=== PATIENT | female | born 1965 | race African-American/Black ===

== ENCOUNTER 2017-08-08 13:56 | Inpatient (IN) ==
[2017-08-08] MEDS ORDERED: ONDANSETRON 4 MG/2 ML VIAL IV STA (14:09)
[2017-08-08] MEDS ORDERED: PANTOPRAZOLE 40 MG VIAL IV STA (14:09)
[2017-08-08] MEDS ORDERED: SODIUM CHLORIDE 0.9% 1,000 ML IV STA ×2 (14:09→17:55)
[2017-08-08] MEDS ORDERED: ONDANSETRON 4 MG/2 ML VIAL ONE (14:56)
[2017-08-08] MEDS ORDERED: PANTOPRAZOLE 40 MG VIAL IV ONE (14:56)
[2017-08-08 15:27] LABS: Basophils # 0.1 10*3/uL (0.0-0.2); Basophils % 0.6 % (0.0-0.8); Eosinophils % 0.2 % (0.00-10.9); Hematocrit 24.6 VOL% (35.7-47.0); Hemoglobin 8.2 GM/DL (12.0-16.0); Immature Granulocytes % 0.6 %; Immature Granulocytes Absolute 0.07 #; Lymphocytes # 1.5 10*3/uL (1.4-4.0); Lymphocytes % 11.9 % (21.3-54.2); Mean Corpuscular HGB Conc 33.3 GM/DL (32-36); Mean Corpuscular Hemoglobin 30 PG (27-34); Mean Corpuscular Volume 88.8 FL (87-102); Mean Platelet Volume 12.7 FL (9.6-12.0); Monocytes # 0.8 10*3/uL (0.11-0.8); Monocytes % 6.8 % (1.7-12.7); Neutrophils # 9.8 10*3/uL (1.4-7.4); Neutrophils % 79.9 % (38.7-73.9); Platelet Count 179 T/CUMM (130-400); Red Blood Count 2.77 MC/CUMM (3.8-5.5); Red Cell Distribution Width 19.1 % (9.3-17.3); White Blood Count 12.2 T/CUMM (4-12)
[2017-08-08 16:03] LABS: Albumin 3.2 G/DL (3.4-5.0); Bilirubin,Total 1.6 MG/DL (0.2-1.0); Calcium 7.5 MG/DL (8.5-10.1); Osmolality,Calculated 290.3 MOS/KG (273-304); Total Protein 6.4 G/DL (6.4-8.3)
[2017-08-08 16:56] LABS: Partial Thromboplastin Time 68.1 SECS (0-40)
[2017-08-08 16:58] LABS: PT Patient Result > 200.0 SECS
[2017-08-08] MEDS ORDERED: PHYTONADIONE 5 MG TABLET PO ONE (18:31)
[2017-08-08] MEDS ORDERED: GLUCAGON 1 MG VIAL IM PRN (18:42)
[2017-08-08] MEDS ORDERED: DEXTROSE 50% 25 GM/50 ML VIAL IV PRN (18:42)
[2017-08-08 21:41] LABS: PT Patient Result > 200.0 SECS
[2017-08-08] MEDS: FUROSEMIDE 20 MG/2 ML VIAL IV SCH (21:57)
[2017-08-08] MEDS: FLUTICASONE/SALMETEROL 250-50 DISKUS 14 DOSE INH SCH (21:57)
[2017-08-08] MEDS: BUMETANIDE 1 MG TABLET PO SCH (21:58)
[2017-08-08] MEDS: INSULIN REGULAR 100 UNIT/ML SUBCUT SCH (21:58)
[2017-08-09 07:47] LABS: Albumin 2.7 G/DL (3.4-5.0); Bilirubin,Total 1.5 MG/DL (0.2-1.0); Calcium 6.7 MG/DL (8.5-10.1); Osmolality,Calculated 289.3 MOS/KG (273-304); Potassium 3.5 MMOL/L (3.5-5.1); Total Protein 5.3 G/DL (6.4-8.3)
[2017-08-09] MEDS ORDERED: amLODIPine 2.5 MG TABLET PO SCH (09:00)
[2017-08-09] MEDS: FUROSEMIDE 20 MG/2 ML VIAL IV SCH ×2 (09:03→16:43)
[2017-08-09] MEDS: BUMETANIDE 1 MG TABLET PO SCH ×2 (09:03→21:16)
[2017-08-09] MEDS: MAGNESIUM CHLORIDE 64 MG TABLET PO SCH (09:03)
[2017-08-09] MEDS: FLUTICASONE/SALMETEROL 250-50 DISKUS 14 DOSE INH SCH ×2 (09:04→21:37)
[2017-08-09] MEDS: INSULIN REGULAR 100 UNIT/ML SUBCUT SCH ×4 (09:04→21:21)
[2017-08-09 10:47] LABS: Basophils % 0.3 % (0.0-0.8); Eosinophils % 0.1 % (0.00-10.9); Hematocrit 18.2 VOL% (35.7-47.0); Immature Granulocytes % 0.7 %; Immature Granulocytes Absolute 0.09 #; Lymphocytes # 1.3 10*3/uL (1.4-4.0); Lymphocytes % 9.5 % (21.3-54.2); Mean Corpuscular Hemoglobin 30 PG (27-34); Mean Corpuscular Volume 91.9 FL (87-102); Mean Platelet Volume 12.1 FL (9.6-12.0); Monocytes # 0.9 10*3/uL (0.11-0.8); Monocytes % 6.4 % (1.7-12.7); Neutrophils # 11.5 10*3/uL (1.4-7.4); Platelet Count 167 T/CUMM (130-400); Red Blood Count 1.98 MC/CUMM (3.8-5.5); Red Cell Distribution Width 19.1 % (9.3-17.3); White Blood Count 13.8 T/CUMM (4-12)
[2017-08-09 11:06] LABS: PT Patient Result 177.9 SECS; Partial Thromboplastin Time 64.1 SECS (0-40)
[2017-08-09 11:08] LABS: INR 18.8
[2017-08-09] MEDS ORDERED: SODIUM CHLORIDE 0.9% 1,000 ML IV PRN (11:27)
[2017-08-09] MEDS ORDERED: PHYTONADIONE 5 MG TABLET PO STA (11:45)
[2017-08-09 12:52] LABS: Apearance,Urine CLEAR (Clear); Bacteria,Urine Occasional /HPF (Few); Bilirubin,Urine Negative (Negative); Blood, Urine Moderate mg/dL (Negative); Glucose,Urine (UA) Negative (Negative); Hyaline Casts,Urine 5 /LPF (0-3); Ketones,Urine Negative (Negative); Mucus,Urine Occasional /LPF (Occasional); Nitrite,Urine Positive (Negative); Protein,Urine Negative; RBC,Urine 6 /HPF (0-4); Squamous Epithelial Cell,Urine Occasional /HPF (0-10); Urine Color Yellow (Yellow); Urine Specific Gravity 1.008 (1.001-1.035); Urine Urobilinogen < 2.0 EU/DL (0.2-1.0); WBC,Urine 9 /HPF (0-6)
[2017-08-09] MEDS ORDERED: FUROSEMIDE 20 MG/2 ML VIAL IV PRN (14:56)
[2017-08-09] MEDS ORDERED: MAGNESIUM SULF RIDER 4 GM in PREMIX 1 EACH IV PRN (14:59)
[2017-08-09] MEDS ORDERED: MAGNESIUM SULF RIDER 2 GM in PREMIX 1 EACH IV PRN (14:59)
[2017-08-09] MEDS: BISACODYL 5 MG TABLET PO SCH ×2 (16:43→22:29)
[2017-08-09] MEDS ORDERED: POLYETHYLENE GLYCOL POWDER 255 GM BOTTLE PO ONE (17:00)
[2017-08-09 18:57] LABS: Hematocrit 21.8 VOL% (35.7-47.0)
[2017-08-09 18:59] LABS: Hemoglobin 7.4 GM/DL (12.0-16.0)
[2017-08-09 19:18] LABS: INR 4.2; PT Patient Result 42.5 SECS; Partial Thromboplastin Time 43.1 SECS (0-40)
[2017-08-09] MEDS ORDERED: MAGNESIUM CITRATE 300 ML BOTTLE PO ONE (21:00)
[2017-08-09] MEDS: PANTOPRAZOLE 40 MG VIAL IV SCH (21:20)
[2017-08-10 03:25] LABS: Hematocrit 21.5 VOL% (35.7-47.0); Hemoglobin 7.2 GM/DL (12.0-16.0)
[2017-08-10 03:37] LABS: Partial Thromboplastin Time 35.6 SECS (0-40)
[2017-08-10 03:42] LABS: INR 2.7
[2017-08-10 03:46] LABS: PT Patient Result 27.5 SECS
[2017-08-10] MEDS: BISACODYL 5 MG TABLET PO SCH (06:36)
[2017-08-10] MEDS ORDERED: PHYTONADIONE 10 MG/1 ML AMP SUBCUT STA (07:35)
[2017-08-10] MEDS: INSULIN REGULAR 100 UNIT/ML SUBCUT SCH ×4 (08:12→21:46)
[2017-08-10] MEDS: PANTOPRAZOLE 40 MG VIAL IV SCH (08:22)
[2017-08-10] MEDS: FUROSEMIDE 20 MG/2 ML VIAL IV SCH ×2 (08:22→15:42)
[2017-08-10] MEDS ORDERED: cefTRIAXone 1,000 MG in SYRINGE 1 EACH IV SCH (09:00)
[2017-08-10] MEDS ORDERED: diphenhydrAMINE CAP 50 MG CAPSULE PO PRN (10:33)
[2017-08-10] MEDS ORDERED: FUROSEMIDE 20 MG/2 ML VIAL IV ONE (10:34)
[2017-08-10] MEDS: BUMETANIDE 1 MG TABLET PO SCH ×2 (10:49→21:45)
[2017-08-10] MEDS: FLUTICASONE/SALMETEROL 250-50 DISKUS 14 DOSE INH SCH ×2 (10:49→21:46)
[2017-08-10] MEDS: ACETAMINOPHEN 325 MG TABLET PO PRN (10:49)
[2017-08-10] MEDS: MAGNESIUM CHLORIDE 64 MG TABLET PO SCH (10:49)
[2017-08-10 12:39] LABS: INR 2.2
[2017-08-10 12:41] LABS: PT Patient Result 22.3 SECS
[2017-08-10] MEDS ORDERED: PROPOFOL 200 MG/20 ML VIAL IV ONE (13:34)
[2017-08-10 21:32] LABS: Hematocrit 25.4 VOL% (35.7-47.0); Hemoglobin 8.6 GM/DL (12.0-16.0)
[2017-08-10 21:41] LABS: INR 2.4
[2017-08-10 21:43] LABS: PT Patient Result 24.2 SECS
[2017-08-11 04:40] LABS: Basophils # 0.1 10*3/uL (0.0-0.2); Basophils % 0.3 % (0.0-0.8); Hematocrit 24.6 VOL% (35.7-47.0); Hemoglobin 8.5 GM/DL (12.0-16.0); Immature Granulocytes % 1.2 %; Immature Granulocytes Absolute 0.28 #; Lymphocytes # 1.3 10*3/uL (1.4-4.0); Lymphocytes % 5.4 % (21.3-54.2); Mean Corpuscular HGB Conc 34.6 GM/DL (32-36); Mean Corpuscular Hemoglobin 30 PG (27-34); Mean Corpuscular Volume 86.9 FL (87-102); Mean Platelet Volume 12.2 FL (9.6-12.0); Monocytes # 1.7 10*3/uL (0.11-0.8); Monocytes % 7.1 % (1.7-12.7); Neutrophils # 20.9 10*3/uL (1.4-7.4); Platelet Count 139 T/CUMM (130-400); Red Blood Count 2.83 MC/CUMM (3.8-5.5); Red Cell Distribution Width 18.1 % (9.3-17.3); White Blood Count 24.3 T/CUMM (4-12)
[2017-08-11 05:12] LABS: Calcium 7.5 MG/DL (8.5-10.1); Magnesium 1.7 MG/DL (1.8-2.4); Osmolality,Calculated 281.7 MOS/KG (273-304); Potassium 3.1 MMOL/L (3.5-5.1); Risk Ratio 3.37; VLDL CHOLESTEROL 17.4 MG/DL
[2017-08-11 06:10] LABS: Anisocytosis 1+; Band Neutrophils 1 % (0-10); Lymphocytes 6 % (20-55); Metamyelocytes 1 %; Segmented Neutrophils 90 % (50-85); Total Cells Counted 100
[2017-08-11 06:11] LABS: Hypochromasia 1+; Ovalocytes 1+; Platelet Estimate Normal
[2017-08-11] MEDS: POTASSIUM CHLORIDE RIDER 10 MEQ in PREMIX 1 EACH IV PRN ×4 (06:15→15:44)
[2017-08-11] MEDS: MAGNESIUM CHLORIDE 64 MG TABLET PO SCH (09:54)
[2017-08-11] MEDS: BUMETANIDE 1 MG TABLET PO SCH ×2 (09:54→21:14)
[2017-08-11] MEDS: POTASSIUM CHLORIDE 20 MEQ TABLET PO SCH (09:55)
[2017-08-11] MEDS: INSULIN REGULAR 100 UNIT/ML SUBCUT SCH ×4 (09:56→21:14)
[2017-08-11] MEDS: FLUTICASONE/SALMETEROL 250-50 DISKUS 14 DOSE INH SCH ×2 (09:58→21:14)
[2017-08-11] MEDS: FUROSEMIDE 20 MG/2 ML VIAL IV SCH ×2 (09:59→16:57)
[2017-08-11] MEDS: METOPROLOL SUCCINATE XL 25 MG TABLET PO SCH (15:00)
[2017-08-11] MEDS: PIPERACILLIN/TAZOBACTAM 3,375 MG in SODIUM CHLORIDE 0.9% 100 ML IV SCH ×2 (18:09→22:50)
[2017-08-12 03:22] LABS: Basophils # 0.1 10*3/uL (0.0-0.2); Basophils % 0.2 % (0.0-0.8); Eosinophils # 0.1 10*3/uL (0.0-0.87); Eosinophils % 0.2 % (0.00-10.9); Hematocrit 25.6 VOL% (35.7-47.0); Hemoglobin 8.8 GM/DL (12.0-16.0); Lymphocytes # 1.1 10*3/uL (1.4-4.0); Lymphocytes % 5.5 % (21.3-54.2); Mean Corpuscular HGB Conc 34.4 GM/DL (32-36); Mean Corpuscular Hemoglobin 30 PG (27-34); Mean Corpuscular Volume 87.7 FL (87-102); Mean Platelet Volume 12.3 FL (9.6-12.0); Monocytes # 1.5 10*3/uL (0.11-0.8); Monocytes % 7.5 % (1.7-12.7); NRBC # 0.08 10*3/uL; Neutrophils # 17.1 10*3/uL (1.4-7.4); Neutrophils % 85.6 % (38.7-73.9); Platelet Count 179 T/CUMM (130-400); Red Blood Count 2.92 MC/CUMM (3.8-5.5); Red Cell Distribution Width 18.3 % (9.3-17.3)
[2017-08-12 03:24] LABS: INR 1.7; PT Patient Result 17.9 SECS
[2017-08-12 03:45] LABS: Calcium 7.7 MG/DL (8.5-10.1); Magnesium 1.6 MG/DL (1.8-2.4); Osmolality,Calculated 277.1 MOS/KG (273-304); Potassium 3.9 MMOL/L (3.5-5.1)
[2017-08-12 04:15] LABS: Anisocytosis 1+; Band Neutrophils 2 % (0-10); Eosinophils 1 % (0-10); Lymphocytes 5 % (20-55); Ovalocytes Few; Platelet Estimate Normal; Polychromasia Slight; Segmented Neutrophils 88 % (50-85); Total Cells Counted 100
[2017-08-12] MEDS: PIPERACILLIN/TAZOBACTAM 3,375 MG in SODIUM CHLORIDE 0.9% 100 ML IV SCH ×3 (07:00→22:45)
[2017-08-12] MEDS: INSULIN REGULAR 100 UNIT/ML SUBCUT SCH ×4 (10:28→20:24)
[2017-08-12] MEDS: FUROSEMIDE 20 MG/2 ML VIAL IV SCH ×2 (10:29→15:30)
[2017-08-12] MEDS: BUMETANIDE 1 MG TABLET PO SCH ×2 (10:32→20:24)
[2017-08-12] MEDS: POTASSIUM CHLORIDE 20 MEQ TABLET PO SCH (10:32)
[2017-08-12] MEDS: MAGNESIUM CHLORIDE 64 MG TABLET PO SCH (10:33)
[2017-08-12] MEDS: METOPROLOL SUCCINATE XL 25 MG TABLET PO SCH (10:33)
[2017-08-12] MEDS: FLUTICASONE/SALMETEROL 250-50 DISKUS 14 DOSE INH SCH ×2 (10:34→20:25)
[2017-08-12] MEDS: ACETAMINOPHEN 325 MG TABLET PO PRN (13:27)
[2017-08-13 05:20] LABS: Basophils # 0.1 10*3/uL (0.0-0.2); Basophils % 0.4 % (0.0-0.8); Eosinophils # 0.1 10*3/uL (0.0-0.87); Eosinophils % 0.6 % (0.00-10.9); Hematocrit 27.3 VOL% (35.7-47.0); Hemoglobin 9.1 GM/DL (12.0-16.0); Immature Granulocytes % 0.7 %; Lymphocytes % 6.8 % (21.3-54.2); Mean Corpuscular HGB Conc 33.3 GM/DL (32-36); Mean Corpuscular Hemoglobin 29 PG (27-34); Mean Corpuscular Volume 88.1 FL (87-102); Mean Platelet Volume 11.9 FL (9.6-12.0); Monocytes # 1.1 10*3/uL (0.11-0.8); Monocytes % 8.1 % (1.7-12.7); NRBC # 0.04 10*3/uL; Neutrophils # 11.8 10*3/uL (1.4-7.4); Neutrophils % 83.4 % (38.7-73.9); Platelet Count 198 T/CUMM (130-400); Red Cell Distribution Width 18.5 % (9.3-17.3); White Blood Count 14.1 T/CUMM (4-12)
[2017-08-13 05:48] LABS: Calcium 8.1 MG/DL (8.5-10.1); Magnesium 1.9 MG/DL (1.8-2.4); Potassium 4.5 MMOL/L (3.5-5.1)
[2017-08-13] MEDS: PIPERACILLIN/TAZOBACTAM 3,375 MG in SODIUM CHLORIDE 0.9% 100 ML IV SCH ×2 (06:15→16:04)
[2017-08-13] MEDS: INSULIN REGULAR 100 UNIT/ML SUBCUT SCH ×4 (07:30→21:42)
[2017-08-13] MEDS: METOPROLOL SUCCINATE XL 25 MG TABLET PO SCH (09:30)
[2017-08-13] MEDS: BUMETANIDE 1 MG TABLET PO SCH ×2 (09:30→21:41)
[2017-08-13] MEDS: POTASSIUM CHLORIDE 20 MEQ TABLET PO SCH (09:31)
[2017-08-13] MEDS: FUROSEMIDE 20 MG/2 ML VIAL IV SCH ×2 (09:31→16:00)
[2017-08-13] MEDS: MAGNESIUM CHLORIDE 64 MG TABLET PO SCH (09:31)
[2017-08-13] MEDS: FLUTICASONE/SALMETEROL 250-50 DISKUS 14 DOSE INH SCH ×2 (09:39→21:41)
[2017-08-13] MEDS ORDERED: ONDANSETRON 4 MG/2 ML VIAL IV PRN (12:28)
[2017-08-13] MEDS: ACETAMINOPHEN 325 MG TABLET PO PRN (12:49)
[2017-08-13] MEDS: CARVEDILOL 6.25 MG TABLET PO SCH (21:41)
[2017-08-14] MEDS: PIPERACILLIN/TAZOBACTAM 3,375 MG in SODIUM CHLORIDE 0.9% 100 ML IV SCH ×4 (00:13→23:14)
[2017-08-14 06:22] LABS: Basophils % 0.3 % (0.0-0.8); Eosinophils # 0.1 10*3/uL (0.0-0.87); Eosinophils % 0.9 % (0.00-10.9); Hematocrit 27.5 VOL% (35.7-47.0); Hemoglobin 8.8 GM/DL (12.0-16.0); Immature Granulocytes % 0.7 %; Immature Granulocytes Absolute 0.07 #; Lymphocytes # 0.9 10*3/uL (1.4-4.0); Mean Corpuscular Hemoglobin 29 PG (27-34); Mean Corpuscular Volume 90.5 FL (87-102); Mean Platelet Volume 11.8 FL (9.6-12.0); Monocytes # 0.9 10*3/uL (0.11-0.8); Monocytes % 9.4 % (1.7-12.7); NRBC # 0.07 10*3/uL; Neutrophils % 79.7 % (38.7-73.9); Platelet Count 213 T/CUMM (130-400); Red Blood Count 3.04 MC/CUMM (3.8-5.5); Red Cell Distribution Width 18.6 % (9.3-17.3)
[2017-08-14 06:31] LABS: INR 1.4; PT Patient Result 15.1 SECS
[2017-08-14 06:49] LABS: Calcium 8.1 MG/DL (8.5-10.1); Magnesium 1.9 MG/DL (1.8-2.4); Potassium 5.1 MMOL/L (3.5-5.1)
[2017-08-14] MEDS: INSULIN REGULAR 100 UNIT/ML SUBCUT SCH ×4 (07:30→21:48)
[2017-08-14] MEDS: CARVEDILOL 6.25 MG TABLET PO SCH ×2 (08:27→21:48)
[2017-08-14] MEDS ORDERED: REGADENOSON 0.4 MG/5 ML SYRINGE IV ONE (09:30)
[2017-08-14] MEDS: MAGNESIUM CHLORIDE 64 MG TABLET PO SCH (10:43)
[2017-08-14] MEDS: FUROSEMIDE 20 MG/2 ML VIAL IV SCH ×2 (10:43→15:49)
[2017-08-14] MEDS: POTASSIUM CHLORIDE 20 MEQ TABLET PO SCH (10:44)
[2017-08-14] MEDS: BUMETANIDE 1 MG TABLET PO SCH ×2 (10:44→21:47)
[2017-08-14] MEDS: FLUTICASONE/SALMETEROL 250-50 DISKUS 14 DOSE INH SCH ×2 (10:44→21:47)
[2017-08-15] MEDS: PIPERACILLIN/TAZOBACTAM 3,375 MG in SODIUM CHLORIDE 0.9% 100 ML IV SCH ×2 (06:18→14:35)
[2017-08-15] MEDS: INSULIN REGULAR 100 UNIT/ML SUBCUT SCH ×4 (07:59→21:47)
[2017-08-15] MEDS: CARVEDILOL 6.25 MG TABLET PO SCH ×2 (08:52→21:47)
[2017-08-15] MEDS: BUMETANIDE 1 MG TABLET PO SCH ×2 (08:52→21:26)
[2017-08-15] MEDS: POTASSIUM CHLORIDE 20 MEQ TABLET PO SCH (08:52)
[2017-08-15] MEDS: FLUTICASONE/SALMETEROL 250-50 DISKUS 14 DOSE INH SCH ×2 (08:52→21:43)
[2017-08-15] MEDS: MAGNESIUM CHLORIDE 64 MG TABLET PO SCH (08:52)
[2017-08-15] MEDS: FUROSEMIDE 20 MG/2 ML VIAL IV SCH (10:09)
[2017-08-15] MEDS: FUROSEMIDE 40 MG/4 ML VIAL IV SCH ×2 (11:11→21:28)
[2017-08-15] MEDS: SILDENAFIL 20 MG TABLET PO SCH ×2 (14:35→21:26)
[2017-08-16] MEDS: PIPERACILLIN/TAZOBACTAM 3,375 MG in SODIUM CHLORIDE 0.9% 100 ML IV SCH ×3 (01:17→16:39)
[2017-08-16 05:45] LABS: Calcium 8.2 MG/DL (8.5-10.1); Magnesium 1.9 MG/DL (1.8-2.4); Potassium 4.7 MMOL/L (3.5-5.1)
[2017-08-16] MEDS: FUROSEMIDE 40 MG/4 ML VIAL IV SCH ×3 (06:10→20:53)
[2017-08-16] MEDS ORDERED: amLODIPine 5 MG TABLET PO SCH (09:00)
[2017-08-16] MEDS: INSULIN REGULAR 100 UNIT/ML SUBCUT SCH ×4 (09:38→20:50)
[2017-08-16] MEDS: MAGNESIUM CHLORIDE 64 MG TABLET PO SCH (09:39)
[2017-08-16] MEDS: CARVEDILOL 6.25 MG TABLET PO SCH ×2 (09:40→20:51)
[2017-08-16] MEDS: FLUTICASONE/SALMETEROL 250-50 DISKUS 14 DOSE INH SCH ×2 (09:40→20:50)
[2017-08-16] MEDS: SILDENAFIL 20 MG TABLET PO SCH ×3 (09:40→20:49)
[2017-08-16] MEDS: POTASSIUM CHLORIDE 20 MEQ TABLET PO SCH (09:40)
[2017-08-16] MEDS: BUMETANIDE 1 MG TABLET PO SCH ×2 (09:40→20:49)
[2017-08-17] MEDS: PIPERACILLIN/TAZOBACTAM 3,375 MG in SODIUM CHLORIDE 0.9% 100 ML IV SCH ×2 (00:34→10:36)
[2017-08-17] MEDS: FUROSEMIDE 40 MG/4 ML VIAL IV SCH ×2 (05:50→14:29)
[2017-08-17] MEDS ORDERED: amLODIPine 2.5 MG TABLET PO SCH (09:00)
[2017-08-17] MEDS: INSULIN REGULAR 100 UNIT/ML SUBCUT SCH ×2 (09:51→12:12)
[2017-08-17] MEDS: CARVEDILOL 6.25 MG TABLET PO SCH (10:22)
[2017-08-17] MEDS: BUMETANIDE 1 MG TABLET PO SCH (10:22)
[2017-08-17] MEDS: POTASSIUM CHLORIDE 20 MEQ TABLET PO SCH (10:23)
[2017-08-17] MEDS: MAGNESIUM CHLORIDE 64 MG TABLET PO SCH (10:24)
[2017-08-17] MEDS: SILDENAFIL 20 MG TABLET PO SCH (10:25)
[2017-08-17 12:01] VITALS: BP 89/55
[2017-08-17] MEDS: FLUTICASONE/SALMETEROL 250-50 DISKUS 14 DOSE INH SCH (12:24)
== END 2017-08-17 16:10 | disposition home or self-care (01) | DRG 813 ==
LOC: N.ED 13:56 → N.EDINP 18:24 → SUATTDRO 18:24 → N.5E 19:03 → N.CC 08-09 11:43 → N.3E 08-10 19:21
PROVIDERS: ADMIT Hospitalist; ATTEND Internal Medicine
PROC: COLONBX (2017-08-10 07:30)

== ENCOUNTER 2017-09-07 17:36 | Inpatient (IN) ==
[2017-09-07] MEDS ORDERED: VANCOMYCIN INJ 1,000 MG in SODIUM CHLORIDE 0.9% 250 ML IV STA (17:54)
[2017-09-07] MEDS ORDERED: VANCOMYCIN 1,000 MG VIAL ONE (18:51)
[2017-09-07 18:59] LABS: Basophils # 0.1 10*3/uL (0.0-0.2); Basophils % 0.4 % (0.0-0.8); Eosinophils # 0.1 10*3/uL (0.0-0.87); Eosinophils % 0.6 % (0.00-10.9); Hematocrit 33.8 VOL% (35.7-47.0); Hemoglobin 10.3 GM/DL (12.0-16.0); Immature Granulocytes % 0.5 %; Immature Granulocytes Absolute 0.07 #; Lymphocytes # 0.9 10*3/uL (1.4-4.0); Lymphocytes % 6.8 % (21.3-54.2); Mean Corpuscular HGB Conc 30.5 GM/DL (32-36); Mean Corpuscular Hemoglobin 27 PG (27-34); Mean Corpuscular Volume 87.8 FL (87-102); Mean Platelet Volume 11.5 FL (9.6-12.0); Monocytes # 0.9 10*3/uL (0.11-0.8); Monocytes % 6.5 % (1.7-12.7); Neutrophils # 11.6 10*3/uL (1.4-7.4); Neutrophils % 85.2 % (38.7-73.9); Platelet Count 258 T/CUMM (130-400); Red Blood Count 3.85 MC/CUMM (3.8-5.5); Red Cell Distribution Width 18.4 % (9.3-17.3); White Blood Count 13.6 T/CUMM (4-12)
[2017-09-07 19:10] LABS: INR 1.1
[2017-09-07 19:29] LABS: Albumin 3.2 G/DL (3.4-5.0); Calcium 8.3 MG/DL (8.5-10.1); Osmolality,Calculated 275.1 MOS/KG (273-304); Potassium 3.4 MMOL/L (3.5-5.1); Total Protein 7.3 G/DL (6.4-8.3)
[2017-09-07] MEDS ORDERED: ONDANSETRON 4 MG/2 ML VIAL IV PRN (20:38)
[2017-09-07] MEDS ORDERED: DEXTROSE 50% 25 GM/50 ML VIAL IV PRN (20:58)
[2017-09-07] MEDS ORDERED: GLUCAGON 1 MG VIAL IM PRN (20:58)
[2017-09-07] MEDS ORDERED: DOCUSATE SODIUM 100 MG CAPSULE PO PRN (21:05)
[2017-09-07] MEDS ORDERED: CEFTAROLINE 600 MG in SODIUM CHLORIDE 0.9% 100 ML IV SCH (21:30)
[2017-09-07] MEDS ORDERED: PNEUMOCOCCAL VACCINE (23 VALENT) 0.5 ML VIAL IM ONE (22:00)
[2017-09-07] MEDS ORDERED: INFLUENZA VIRUS VACCINE 0.5 ML SYRINGE IM ONE (22:00)
[2017-09-07] MEDS: INSULIN LISPRO 100 UNIT/ML SUBCUT SCH (22:17)
[2017-09-07] MEDS: FERROUS SULFATE 325 MG TABLET PO SCH (22:30)
[2017-09-07] MEDS: CARVEDILOL 6.25 MG TABLET PO SCH (22:30)
[2017-09-07] MEDS: CEFTAROLINE 600 MG in SODIUM CHLORIDE 0.9% 50 ML IV SCH (22:31)
[2017-09-08 03:28] LABS: Basophils % 0.3 % (0.0-0.8); Eosinophils # 0.1 10*3/uL (0.0-0.87); Eosinophils % 0.5 % (0.00-10.9); Hematocrit 30.6 VOL% (35.7-47.0); Hemoglobin 9.5 GM/DL (12.0-16.0); Immature Granulocytes % 0.3 %; Immature Granulocytes Absolute 0.04 #; Lymphocytes # 0.6 10*3/uL (1.4-4.0); Lymphocytes % 4.9 % (21.3-54.2); Mean Corpuscular Hemoglobin 27 PG (27-34); Mean Platelet Volume 11.7 FL (9.6-12.0); Monocytes # 0.7 10*3/uL (0.11-0.8); Monocytes % 5.4 % (1.7-12.7); Neutrophils # 10.7 10*3/uL (1.4-7.4); Neutrophils % 88.6 % (38.7-73.9); Platelet Count 214 T/CUMM (130-400); Red Blood Count 3.56 MC/CUMM (3.8-5.5); Red Cell Distribution Width 18.4 % (9.3-17.3); White Blood Count 12.1 T/CUMM (4-12)
[2017-09-08 04:08] LABS: Calcium 8.1 MG/DL (8.5-10.1); Osmolality,Calculated 278.8 MOS/KG (273-304); Potassium 3.3 MMOL/L (3.5-5.1); Thyroid Stimulating Hormone 2.62 uIU/ml (0.358-3.74)
[2017-09-08] MEDS ORDERED: POTASSIUM CHLORIDE 20 MEQ TABLET PO ONE (08:09)
[2017-09-08] MEDS ORDERED: MAGNESIUM SULF RIDER 2 GM in PREMIX 1 EACH IV ONE (08:10)
[2017-09-08] MEDS ORDERED: amLODIPine 2.5 MG TABLET PO SCH (09:00)
[2017-09-08] MEDS: INSULIN LISPRO 100 UNIT/ML SUBCUT SCH ×4 (10:10→20:41)
[2017-09-08] MEDS: MAGNESIUM CHLORIDE 64 MG TABLET PO SCH (10:12)
[2017-09-08] MEDS: metFORMIN 500 MG TABLET PO SCH ×2 (10:12→16:49)
[2017-09-08] MEDS: FERROUS SULFATE 325 MG TABLET PO SCH ×2 (10:12→20:44)
[2017-09-08] MEDS: FUROSEMIDE 40 MG/4 ML VIAL IV SCH ×2 (10:21→16:32)
[2017-09-08] MEDS: LOSARTAN 25 MG TABLET PO SCH (10:21)
[2017-09-08] MEDS: CARVEDILOL 6.25 MG TABLET PO SCH ×2 (10:33→20:41)
[2017-09-08] MEDS ORDERED: MAGNESIUM SULF RIDER 4 GM in PREMIX 1 EACH IV PRN (12:04)
[2017-09-08] MEDS ORDERED: MAGNESIUM SULF RIDER 2 GM in PREMIX 1 EACH IV PRN (12:04)
[2017-09-08] MEDS: CEFTAROLINE 600 MG in SODIUM CHLORIDE 0.9% 50 ML IV SCH ×2 (12:37→23:16)
[2017-09-08] MEDS: ACETAMINOPHEN 325 MG TABLET PO PRN ×2 (16:50→23:20)
[2017-09-09 04:50] LABS: Calcium 8.4 MG/DL (8.5-10.1); Magnesium 1.9 MG/DL (1.8-2.4); Osmolality,Calculated 276.1 MOS/KG (273-304); Potassium 3.9 MMOL/L (3.5-5.1)
[2017-09-09] MEDS: INSULIN LISPRO 100 UNIT/ML SUBCUT SCH ×4 (08:05→20:26)
[2017-09-09] MEDS: CARVEDILOL 6.25 MG TABLET PO SCH ×2 (09:52→20:24)
[2017-09-09] MEDS: MAGNESIUM CHLORIDE 64 MG TABLET PO SCH (09:52)
[2017-09-09] MEDS: LOSARTAN 25 MG TABLET PO SCH (09:52)
[2017-09-09] MEDS: metFORMIN 500 MG TABLET PO SCH ×2 (09:53→18:26)
[2017-09-09] MEDS: FUROSEMIDE 40 MG/4 ML VIAL IV SCH ×2 (09:53→18:27)
[2017-09-09] MEDS: FERROUS SULFATE 325 MG TABLET PO SCH ×2 (09:53→20:24)
[2017-09-09] MEDS ORDERED: metOLazone 5 MG TABLET PO SCH (11:00)
[2017-09-09] MEDS: CEFTAROLINE 600 MG in SODIUM CHLORIDE 0.9% 50 ML IV SCH ×2 (11:33→22:42)
[2017-09-09] MEDS: ACETAMINOPHEN 325 MG TABLET PO PRN ×2 (11:40→18:26)
[2017-09-09] MEDS: POTASSIUM CHLORIDE 20 MEQ TABLET PO SCH ×2 (18:26→20:24)
[2017-09-09] MEDS: ALBUMIN 25% 25 GM in PREMIX 1 EACH IV SCH ×2 (18:32→23:47)
[2017-09-09 22:12] LABS: Apearance,Urine Slightly Hazy (Clear); Bacteria,Urine Occasional /HPF (Few); Bilirubin,Urine Negative (Negative); Blood, Urine Negative (Negative); Glucose,Urine (UA) Negative (Negative); Hyaline Casts,Urine 79 /LPF (0-3); Ketones,Urine Negative (Negative); Mucus,Urine Occasional /LPF (Occasional); Nitrite,Urine Negative (Negative); Protein,Urine Negative; RBC,Urine 6 /HPF (0-4); Squamous Epithelial Cell,Urine Occasional /HPF (0-10); Urine Color Amber (Yellow); Urine Specific Gravity 1.014 (1.001-1.035); WBC,Urine 3 /HPF (0-6)
[2017-09-10 03:21] LABS: Basophils # 0.1 10*3/uL (0.0-0.2); Basophils % 0.5 % (0.0-0.8); Eosinophils # 0.1 10*3/uL (0.0-0.87); Eosinophils % 0.8 % (0.00-10.9); Hematocrit 32.3 VOL% (35.7-47.0); Hemoglobin 9.8 GM/DL (12.0-16.0); Immature Granulocytes % 0.7 %; Immature Granulocytes Absolute 0.08 #; Lymphocytes # 0.9 10*3/uL (1.4-4.0); Lymphocytes % 7.3 % (21.3-54.2); Mean Corpuscular HGB Conc 30.3 GM/DL (32-36); Mean Corpuscular Hemoglobin 26 PG (27-34); Mean Corpuscular Volume 86.4 FL (87-102); Mean Platelet Volume 11.2 FL (9.6-12.0); Monocytes # 0.9 10*3/uL (0.11-0.8); Monocytes % 7.3 % (1.7-12.7); Neutrophils # 10.2 10*3/uL (1.4-7.4); Neutrophils % 83.4 % (38.7-73.9); Platelet Count 228 T/CUMM (130-400); Red Blood Count 3.74 MC/CUMM (3.8-5.5); Red Cell Distribution Width 18.4 % (9.3-17.3); White Blood Count 12.3 T/CUMM (4-12)
[2017-09-10 03:51] LABS: Calcium 8.8 MG/DL (8.5-10.1); Magnesium 1.9 MG/DL (1.8-2.4); Osmolality,Calculated 275.2 MOS/KG (273-304); Potassium 4.3 MMOL/L (3.5-5.1)
[2017-09-10] MEDS: INSULIN LISPRO 100 UNIT/ML SUBCUT SCH ×4 (07:30→21:43)
[2017-09-10] MEDS: FUROSEMIDE 40 MG/4 ML VIAL IV SCH ×2 (10:28→19:11)
[2017-09-10] MEDS: ALBUMIN 25% 25 GM in PREMIX 1 EACH IV SCH ×2 (10:32→19:17)
[2017-09-10] MEDS: metFORMIN 500 MG TABLET PO SCH ×2 (10:34→19:13)
[2017-09-10] MEDS: FERROUS SULFATE 325 MG TABLET PO SCH ×2 (10:34→21:42)
[2017-09-10] MEDS: LOSARTAN 25 MG TABLET PO SCH (10:34)
[2017-09-10] MEDS: CARVEDILOL 6.25 MG TABLET PO SCH ×2 (10:34→21:42)
[2017-09-10] MEDS: metOLazone 5 MG TABLET PO SCH (10:35)
[2017-09-10] MEDS: MAGNESIUM CHLORIDE 64 MG TABLET PO SCH (10:35)
[2017-09-10] MEDS: POTASSIUM CHLORIDE 20 MEQ TABLET PO SCH ×2 (10:35→21:42)
[2017-09-10] MEDS: ACETAMINOPHEN 325 MG TABLET PO PRN (10:36)
[2017-09-10] MEDS: CEFTAROLINE 600 MG in SODIUM CHLORIDE 0.9% 50 ML IV SCH ×2 (15:31→23:23)
[2017-09-11] MEDS: ALBUMIN 25% 25 GM in PREMIX 1 EACH IV SCH ×4 (00:08→22:35)
[2017-09-11] MEDS ORDERED: SODIUM CHLORIDE 0.9% 250 ML IV ONE (04:47)
[2017-09-11] MEDS ORDERED: ALBUMIN 25% 25 GM in PREMIX 1 EACH IV ONE (05:35)
[2017-09-11] MEDS ORDERED: MIDODRINE 5 MG TABLET PO SCH (06:00)
[2017-09-11] MEDS: INSULIN LISPRO 100 UNIT/ML SUBCUT SCH ×4 (08:10→21:11)
[2017-09-11] MEDS: CARVEDILOL 6.25 MG TABLET PO SCH ×2 (09:45→21:12)
[2017-09-11] MEDS: LOSARTAN 25 MG TABLET PO SCH (09:45)
[2017-09-11] MEDS: FERROUS SULFATE 325 MG TABLET PO SCH ×2 (09:45→21:14)
[2017-09-11] MEDS: metOLazone 5 MG TABLET PO SCH (09:46)
[2017-09-11] MEDS: POTASSIUM CHLORIDE 20 MEQ TABLET PO SCH ×2 (09:46→21:14)
[2017-09-11] MEDS: MAGNESIUM CHLORIDE 64 MG TABLET PO SCH (09:46)
[2017-09-11] MEDS: FUROSEMIDE 40 MG/4 ML VIAL IV SCH ×2 (10:32→18:00)
[2017-09-11] MEDS: CEFTAROLINE 600 MG in SODIUM CHLORIDE 0.9% 100 ML IV SCH ×2 (12:31→21:30)
[2017-09-11] MEDS: BACITRACIN OINT 0.9 GM PACK TOP SCH (21:10)
[2017-09-12] MEDS: ACETAMINOPHEN 325 MG TABLET PO PRN (00:14)
[2017-09-12 07:26] LABS: Basophils % 0.2 % (0.0-0.8); Hematocrit 32.6 VOL% (35.7-47.0); Immature Granulocytes % 0.9 %; Immature Granulocytes Absolute 0.13 #; Lymphocytes # 0.8 10*3/uL (1.4-4.0); Lymphocytes % 5.7 % (21.3-54.2); Mean Corpuscular HGB Conc 30.7 GM/DL (32-36); Mean Corpuscular Hemoglobin 27 PG (27-34); Mean Corpuscular Volume 87.6 FL (87-102); Monocytes % 7.3 % (1.7-12.7); Neutrophils # 12.3 10*3/uL (1.4-7.4); Neutrophils % 85.9 % (38.7-73.9); Platelet Count 247 T/CUMM (130-400); Red Blood Count 3.72 MC/CUMM (3.8-5.5); Red Cell Distribution Width 18.6 % (9.3-17.3); White Blood Count 14.3 T/CUMM (4-12)
[2017-09-12 07:44] LABS: Calcium 9.2 MG/DL (8.5-10.1); Osmolality,Calculated 268.8 MOS/KG (273-304); Potassium 5.7 MMOL/L (3.5-5.1)
[2017-09-12] MEDS ORDERED: SODIUM POLYSTYRENE SULFATE 15 GM/60 ML BOTTLE PO ONE (10:35)
[2017-09-12] MEDS: CARVEDILOL 6.25 MG TABLET PO SCH ×3 (10:56→21:14)
[2017-09-12] MEDS: MAGNESIUM CHLORIDE 64 MG TABLET PO SCH (10:56)
[2017-09-12] MEDS: FERROUS SULFATE 325 MG TABLET PO SCH ×2 (10:56→21:19)
[2017-09-12] MEDS: INSULIN LISPRO 100 UNIT/ML SUBCUT SCH ×4 (10:56→21:54)
[2017-09-12] MEDS: ALBUMIN 25% 25 GM in PREMIX 1 EACH IV SCH (10:56)
[2017-09-12] MEDS: CEFTAROLINE 400 MG in SODIUM CHLORIDE 0.9% 100 ML IV SCH ×2 (10:57→21:20)
[2017-09-12] MEDS: FUROSEMIDE 40 MG/4 ML VIAL IV SCH (11:53)
[2017-09-12] MEDS: BACITRACIN OINT 0.9 GM PACK TOP SCH (11:54)
[2017-09-13 06:39] LABS: Calcium 9.4 MG/DL (8.5-10.1); Osmolality,Calculated 268.1 MOS/KG (273-304); Potassium 5.7 MMOL/L (3.5-5.1)
[2017-09-13] MEDS: INSULIN LISPRO 100 UNIT/ML SUBCUT SCH ×4 (07:42→21:50)
[2017-09-13] MEDS: CARVEDILOL 6.25 MG TABLET PO SCH (08:28)
[2017-09-13] MEDS: FERROUS SULFATE 325 MG TABLET PO SCH ×2 (08:28→21:49)
[2017-09-13] MEDS: MAGNESIUM CHLORIDE 64 MG TABLET PO SCH (08:29)
[2017-09-13] MEDS: CEFTAROLINE 400 MG in SODIUM CHLORIDE 0.9% 100 ML IV SCH ×2 (11:17→21:50)
[2017-09-13] MEDS ORDERED: SODIUM POLYSTYRENE SULFATE 15 GM/60 ML BOTTLE PO ONE (11:19)
[2017-09-13] MEDS ORDERED: SODIUM CHLORIDE 0.45% 1,000 ML IV SCH (11:30)
[2017-09-13] MEDS: ENOXAPARIN 30 MG/0.3 ML SYRINGE SUBCUT SCH (11:47)
[2017-09-13] MEDS: SODIUM CHLORIDE 1 GM TABLET PO SCH ×2 (11:48→21:49)
[2017-09-13] MEDS: BACITRACIN OINT 0.9 GM PACK TOP SCH (15:47)
[2017-09-14 05:46] LABS: Basophils % 0.1 % (0.0-0.8); Eosinophils % 0.1 % (0.00-10.9); Hematocrit 33.8 VOL% (35.7-47.0); Hemoglobin 10.8 GM/DL (12.0-16.0); Immature Granulocytes % 0.6 %; Lymphocytes # 0.7 10*3/uL (1.4-4.0); Mean Corpuscular Hemoglobin 27 PG (27-34); Mean Corpuscular Volume 84.9 FL (87-102); Monocytes # 1.2 10*3/uL (0.11-0.8); Monocytes % 7.3 % (1.7-12.7); Neutrophils # 14.4 10*3/uL (1.4-7.4); Neutrophils % 87.9 % (38.7-73.9); Platelet Count 276 T/CUMM (130-400); Red Blood Count 3.98 MC/CUMM (3.8-5.5); Red Cell Distribution Width 18.8 % (9.3-17.3); White Blood Count 16.4 T/CUMM (4-12)
[2017-09-14 06:07] LABS: Lymphocytes 6 % (20-55); Segmented Neutrophils 87 % (50-85); Total Cells Counted 100
[2017-09-14 06:08] LABS: Burr Cells Slight; Hypochromasia 1+; Ovalocytes Slight; Platelet Estimate Adequate
[2017-09-14 06:18] LABS: Calcium 8.9 MG/DL (8.5-10.1); Magnesium 2.1 MG/DL (1.8-2.4); Osmolality,Calculated 265.2 MOS/KG (273-304); Potassium 5.8 MMOL/L (3.5-5.1)
[2017-09-14 07:26] LABS: Apearance,Urine CLOUDY (Clear); Bacteria,Urine Few /HPF (Few); Bilirubin,Urine Negative (Negative); Blood, Urine Large mg/dL (Negative); Glucose,Urine (UA) Negative (Negative); Hyaline Casts,Urine 53 /LPF (0-3); Ketones,Urine Negative (Negative); Mucus,Urine Occasional /LPF (Occasional); Nitrite,Urine Negative (Negative); Protein,Urine 100 MG/DL; RBC,Urine 162 /HPF (0-4); Squamous Epithelial Cell,Urine Occasional /HPF (0-10); Urine Color Amber (Yellow); Urine Specific Gravity 1.018 (1.001-1.035); Urine Urobilinogen < 2.0 EU/DL (0.2-1.0); WBC,Urine 183 /HPF (0-6)
[2017-09-14] MEDS: INSULIN LISPRO 100 UNIT/ML SUBCUT SCH ×4 (07:31→20:37)
[2017-09-14] MEDS ORDERED: SODIUM POLYSTYRENE SULFATE 15 GM/60 ML BOTTLE PO ONE (09:12)
[2017-09-14] MEDS: BACITRACIN OINT 0.9 GM PACK TOP SCH (09:47)
[2017-09-14] MEDS: MAGNESIUM CHLORIDE 64 MG TABLET PO SCH (09:48)
[2017-09-14] MEDS: FLUCONAZOLE 100 MG TABLET PO SCH (09:48)
[2017-09-14] MEDS: SODIUM CHLORIDE 1 GM TABLET PO SCH ×2 (09:48→20:37)
[2017-09-14] MEDS: CEFTAROLINE 400 MG in SODIUM CHLORIDE 0.9% 100 ML IV SCH ×2 (09:48→22:42)
[2017-09-14] MEDS: FERROUS SULFATE 325 MG TABLET PO SCH ×2 (09:48→20:37)
[2017-09-14] MEDS: ENOXAPARIN 30 MG/0.3 ML SYRINGE SUBCUT SCH (11:21)
[2017-09-15 04:36] LABS: Basophils % 0.1 % (0.0-0.8); Eosinophils % 0.1 % (0.00-10.9); Hematocrit 33.1 VOL% (35.7-47.0); Hemoglobin 10.5 GM/DL (12.0-16.0); Immature Granulocytes % 0.5 %; Immature Granulocytes Absolute 0.09 #; Lymphocytes # 0.5 10*3/uL (1.4-4.0); Lymphocytes % 3.2 % (21.3-54.2); Mean Corpuscular HGB Conc 31.7 GM/DL (32-36); Mean Corpuscular Hemoglobin 27 PG (27-34); Mean Corpuscular Volume 84.9 FL (87-102); Mean Platelet Volume 10.6 FL (9.6-12.0); Neutrophils # 15.2 10*3/uL (1.4-7.4); Neutrophils % 90.1 % (38.7-73.9); Platelet Count 254 T/CUMM (130-400); Red Cell Distribution Width 18.8 % (9.3-17.3); White Blood Count 16.9 T/CUMM (4-12)
[2017-09-15 05:04] LABS: Calcium 8.7 MG/DL (8.5-10.1); Osmolality,Calculated 267.4 MOS/KG (273-304); Potassium 5.7 MMOL/L (3.5-5.1)
[2017-09-15 08:58] LABS: Hypochromasia 1+; Lymphocytes 2 % (20-55); Microcytosis 1+; Platelet Estimate Normal; Segmented Neutrophils 93 % (50-85); Total Cells Counted 100
[2017-09-15] MEDS: FLUCONAZOLE 100 MG TABLET PO SCH (10:05)
[2017-09-15] MEDS: MAGNESIUM CHLORIDE 64 MG TABLET PO SCH (10:06)
[2017-09-15] MEDS: FERROUS SULFATE 325 MG TABLET PO SCH ×2 (10:06→21:23)
[2017-09-15] MEDS: SODIUM CHLORIDE 1 GM TABLET PO SCH (10:06)
[2017-09-15] MEDS: CEFTAROLINE 400 MG in SODIUM CHLORIDE 0.9% 100 ML IV SCH (10:06)
[2017-09-15] MEDS: INSULIN LISPRO 100 UNIT/ML SUBCUT SCH ×4 (10:22→21:21)
[2017-09-15 10:55] LABS: Free T4 (Free Thyroxine) 0.92 NG/DL (0.76-1.46); T4 (Thyroxine) 4.7 UG/DL (4.7-13.3)
[2017-09-15] MEDS: BACITRACIN OINT 0.9 GM PACK TOP SCH (11:17)
[2017-09-15 11:21] LABS: ABG Base Excess -4.4 MMOL/L (-2.5-2.5); ABG HCO3 20.4 MMOL/L (20-26); ABG Oxygen Saturation 89.5 % (95-100); ABG PCO2 36.4 MM HG (35-48); ABG PH 7.366 (7.35-7.45); ABG PO2 58.3 MM HG (80-95); ABG TCO2 21.5 MMOL/L (23-27); Pt O2 Delivery Device Simple Mask
[2017-09-15] MEDS ORDERED: SODIUM POLYSTYRENE SULFATE 15 GM/60 ML BOTTLE PO ONE (14:25)
[2017-09-15] MEDS: ENOXAPARIN 30 MG/0.3 ML SYRINGE SUBCUT SCH (14:25)
[2017-09-16 05:34] LABS: Basophils % 0.1 % (0.0-0.8); Eosinophils % 0.1 % (0.00-10.9); Hematocrit 33.6 VOL% (35.7-47.0); Hemoglobin 10.5 GM/DL (12.0-16.0); Immature Granulocytes % 0.6 %; Lymphocytes # 0.5 10*3/uL (1.4-4.0); Lymphocytes % 3.2 % (21.3-54.2); Mean Corpuscular HGB Conc 31.3 GM/DL (32-36); Mean Corpuscular Hemoglobin 27 PG (27-34); Mean Corpuscular Volume 85.5 FL (87-102); Mean Platelet Volume 10.7 FL (9.6-12.0); Monocytes # 0.9 10*3/uL (0.11-0.8); Monocytes % 5.7 % (1.7-12.7); NRBC # 0.02 10*3/uL; Neutrophils # 14.5 10*3/uL (1.4-7.4); Neutrophils % 90.3 % (38.7-73.9); Platelet Count 226 T/CUMM (130-400); Red Blood Count 3.93 MC/CUMM (3.8-5.5); Red Cell Distribution Width 18.7 % (9.3-17.3)
[2017-09-16 06:11] LABS: Calcium 8.8 MG/DL (8.5-10.1); Osmolality,Calculated 268.2 MOS/KG (273-304)
[2017-09-16 07:17] LABS: Band Neutrophils 4 % (0-10); Eosinophils 1 % (0-10); Lymphocytes 6 % (20-55); Metamyelocytes 1 %; Segmented Neutrophils 84 % (50-85); Total Cells Counted 100
[2017-09-16 07:18] LABS: Anisocytosis 2+; Poikilocytosis 2+; Polychromasia 2+
[2017-09-16] MEDS: INSULIN LISPRO 100 UNIT/ML SUBCUT SCH ×4 (07:52→22:40)
[2017-09-16] MEDS: FLUCONAZOLE 100 MG TABLET PO SCH (10:00)
[2017-09-16] MEDS: FERROUS SULFATE 325 MG TABLET PO SCH ×2 (10:00→22:16)
[2017-09-16] MEDS: MAGNESIUM CHLORIDE 64 MG TABLET PO SCH (10:00)
[2017-09-16] MEDS: BACITRACIN OINT 0.9 GM PACK TOP SCH (11:25)
[2017-09-16] MEDS: ENOXAPARIN 30 MG/0.3 ML SYRINGE SUBCUT SCH (11:39)
[2017-09-17 02:26] LABS: Basophils % 0.1 % (0.0-0.8); Eosinophils % 0.1 % (0.00-10.9); Hematocrit 34.1 VOL% (35.7-47.0); Hemoglobin 10.3 GM/DL (12.0-16.0); Immature Granulocytes % 0.5 %; Immature Granulocytes Absolute 0.08 #; Lymphocytes # 0.5 10*3/uL (1.4-4.0); Lymphocytes % 3.3 % (21.3-54.2); Mean Corpuscular HGB Conc 30.2 GM/DL (32-36); Mean Corpuscular Hemoglobin 26 PG (27-34); Mean Platelet Volume 10.3 FL (9.6-12.0); Monocytes # 0.9 10*3/uL (0.11-0.8); Monocytes % 5.6 % (1.7-12.7); NRBC # 0.03 10*3/uL; Neutrophils # 14.4 10*3/uL (1.4-7.4); Neutrophils % 90.4 % (38.7-73.9); Platelet Count 213 T/CUMM (130-400); Red Blood Count 3.92 MC/CUMM (3.8-5.5); Red Cell Distribution Width 18.9 % (9.3-17.3); White Blood Count 15.9 T/CUMM (4-12)
[2017-09-17 03:06] LABS: Albumin 3.6 G/DL (3.4-5.0); Bilirubin,Total 1.3 MG/DL (0.2-1.0); Calcium 8.8 MG/DL (8.5-10.1); Osmolality,Calculated 270.2 MOS/KG (273-304); Potassium 5.2 MMOL/L (3.5-5.1); Total Protein 6.9 G/DL (6.4-8.3)
[2017-09-17 03:18] LABS: Lymphocytes 4 % (20-55); Segmented Neutrophils 91 % (50-85)
[2017-09-17 03:19] LABS: Burr Cells 1+; Elliptocytes 1+
[2017-09-17 03:26] LABS: Anisocytosis 2+; Ovalocytes 2+; Schistocytes Few
[2017-09-17 03:27] LABS: Platelet Estimate Normal; Polychromasia Few; Total Cells Counted 100
[2017-09-17 03:28] LABS: Poikilocytosis Few
[2017-09-17] MEDS: FERROUS SULFATE 325 MG TABLET PO SCH ×2 (08:49→21:26)
[2017-09-17] MEDS: MAGNESIUM CHLORIDE 64 MG TABLET PO SCH (08:49)
[2017-09-17] MEDS: FLUCONAZOLE 100 MG TABLET PO SCH (08:49)
[2017-09-17] MEDS: INSULIN LISPRO 100 UNIT/ML SUBCUT SCH ×4 (08:51→21:27)
[2017-09-17] MEDS: BACITRACIN OINT 0.9 GM PACK TOP SCH (08:51)
[2017-09-17] MEDS: ENOXAPARIN 30 MG/0.3 ML SYRINGE SUBCUT SCH (12:02)
[2017-09-17] MEDS ORDERED: FUROSEMIDE 40 MG/4 ML VIAL IV ONE (14:14)
[2017-09-18] MEDS: INSULIN LISPRO 100 UNIT/ML SUBCUT SCH ×4 (07:19→21:28)
[2017-09-18] MEDS: FERROUS SULFATE 325 MG TABLET PO SCH ×2 (08:56→22:00)
[2017-09-18] MEDS: FLUCONAZOLE 100 MG TABLET PO SCH (08:56)
[2017-09-18] MEDS: MAGNESIUM CHLORIDE 64 MG TABLET PO SCH (08:56)
[2017-09-18 10:30] LABS: Basophils % 0.2 % (0.0-0.8); Hematocrit 35.8 VOL% (35.7-47.0); Hemoglobin 11.6 GM/DL (12.0-16.0); Immature Granulocytes % 0.8 %; Immature Granulocytes Absolute 0.16 #; Lymphocytes # 0.7 10*3/uL (1.4-4.0); Lymphocytes % 3.7 % (21.3-54.2); Mean Corpuscular HGB Conc 32.4 GM/DL (32-36); Mean Corpuscular Hemoglobin 28 PG (27-34); Mean Corpuscular Volume 85.6 FL (87-102); Mean Platelet Volume 11.3 FL (9.6-12.0); Monocytes # 1.1 10*3/uL (0.11-0.8); Monocytes % 5.4 % (1.7-12.7); NRBC # 0.04 10*3/uL; Neutrophils # 17.7 10*3/uL (1.4-7.4); Neutrophils % 89.9 % (38.7-73.9); Platelet Count 221 T/CUMM (130-400); Red Blood Count 4.18 MC/CUMM (3.8-5.5); Red Cell Distribution Width 19.4 % (9.3-17.3); White Blood Count 19.7 T/CUMM (4-12)
[2017-09-18] MEDS: BACITRACIN OINT 0.9 GM PACK TOP SCH (10:40)
[2017-09-18 10:57] LABS: Hypochromasia 1+; Macrocytosis 1+; Platelet Estimate Adequate; Polychromasia Slight; Spherocytes Few; Target Cells Slight
[2017-09-18 10:58] LABS: Calcium 8.8 MG/DL (8.5-10.1); Magnesium 2.2 MG/DL (1.8-2.4); Osmolality,Calculated 267.6 MOS/KG (273-304); Potassium 5.7 MMOL/L (3.5-5.1)
[2017-09-18] MEDS ORDERED: FUROSEMIDE 40 MG/4 ML VIAL IV ONE (12:35)
[2017-09-18] MEDS: ENOXAPARIN 30 MG/0.3 ML SYRINGE SUBCUT SCH (12:43)
[2017-09-18] MEDS: ALBUTEROL/IPRATROPIUM 3 ML NEB RESP TX SCH ×2 (12:45→19:20)
[2017-09-18] MEDS: ALBUMIN 25% 25 GM in PREMIX 1 EACH IV SCH ×2 (13:00→22:00)
[2017-09-18 23:07] LABS: Allen Test Positive; Pt O2 Delivery Device Ventilator
[2017-09-18 23:09] LABS: ABG Base Excess -21.3 MMOL/L (-2.5-2.5); ABG HCO3 9.1 MMOL/L (20-26); ABG Oxygen Saturation 75.4 % (95-100); ABG PCO2 25.4 MM HG (35-48); ABG TCO2 7.3 MMOL/L (23-27)
[2017-09-18 23:15] LABS: ABG PH 7.093 (7.35-7.45)
[2017-09-19 00:01] LABS: ABG Base Excess -22.2 MMOL/L (-2.5-2.5); ABG HCO3 8.6 MMOL/L (20-26); ABG PCO2 26.1 MM HG (35-48); ABG PO2 69.5 MM HG (80-95); ABG TCO2 7.1 MMOL/L (23-27)
[2017-09-19 00:04] LABS: ABG PH 7.062 (7.35-7.45)
[2017-09-19] MEDS ORDERED: ETOMIDATE 20 MG/10 ML VIAL IV ONE ×3 (00:07→00:25)
[2017-09-19] MEDS ORDERED: SUCCINYLCHOLINE 200 MG/10 ML VIAL ONE (00:08)
[2017-09-19] MEDS ORDERED: VECURONIUM 10 MG VIAL IV ONE ×3 (00:18→00:25)
[2017-09-19] MEDS ORDERED: SODIUM BICARBONATE 50 MEQ/50 ML SYRINGE IV ONE ×2 (00:30→01:00)
[2017-09-19] MEDS ORDERED: NOREPINEPHRINE 8 MG in SODIUM CHLORIDE 0.9% 242 ML IV STA (00:35)
[2017-09-19] MEDS ORDERED: NOREPINEPHRINE 4 MG/4 ML VIAL IV ONE ×2 (00:36→00:37)
[2017-09-19] MEDS ORDERED: SODIUM CHLORIDE 0.9% 250 ML IV ONE (00:37)
[2017-09-19] MEDS: ALBUTEROL/IPRATROPIUM 3 ML NEB RESP TX SCH (00:49)
[2017-09-19 01:17] LABS: Allen Test Positive; Pt O2 Delivery Device Ventilator
[2017-09-19 01:18] LABS: ABG Base Excess -19.9 MMOL/L (-2.5-2.5); ABG HCO3 10.1 MMOL/L (20-26); ABG Oxygen Saturation 93.1 % (95-100); ABG PCO2 38.6 MM HG (35-48); ABG PO2 94.9 MM HG (80-95); ABG TCO2 11.3 MMOL/L (23-27)
[2017-09-19 01:21] LABS: ABG PH 7.035 (7.35-7.45)
[2017-09-19] MEDS ORDERED: AMIODARONE INJ 450 MG in DEXTROSE 5% 241 ML IV SCH (03:16)
[2017-09-19] MEDS ORDERED: AMIODARONE 150 MG/3 ML VIAL ONE (03:24)
[2017-09-19 05:01] LABS: Allen Test Positive; Pt O2 Delivery Device Ventilator
[2017-09-19 05:02] LABS: ABG Base Excess -21.6 MMOL/L (-2.5-2.5); ABG HCO3 10.3 MMOL/L (20-26); ABG PCO2 48.6 MM HG (35-48); ABG PO2 51.8 MM HG (80-95); ABG TCO2 11.8 MMOL/L (23-27)
[2017-09-19 05:05] LABS: ABG PH 6.944 (7.35-7.45)
[2017-09-19 05:37] LABS: Calcium 8.3 MG/DL (8.5-10.1); Magnesium 2.5 MG/DL (1.8-2.4); Osmolality,Calculated 267.4 MOS/KG (273-304)
[2017-09-19 05:51] LABS: Basophils # 0.1 10*3/uL (0.0-0.2); Basophils % 0.3 % (0.0-0.8); Hematocrit 40.2 VOL% (35.7-47.0); Hemoglobin 11.3 GM/DL (12.0-16.0); Immature Granulocytes Absolute 1.64 #; Lymphocytes # 1.3 10*3/uL (1.4-4.0); Lymphocytes % 3.2 % (21.3-54.2); Mean Corpuscular HGB Conc 28.1 GM/DL (32-36); Mean Corpuscular Hemoglobin 27 PG (27-34); Mean Corpuscular Volume 97.1 FL (87-102); Mean Platelet Volume 11.2 FL (9.6-12.0); Monocytes % 7.2 % (1.7-12.7); NRBC # 0.15 10*3/uL; Neutrophils # 34.8 10*3/uL (1.4-7.4); Neutrophils % 85.3 % (38.7-73.9); Platelet Count 165 T/CUMM (130-400); Potassium 6.3 MMOL/L (3.5-5.1); Red Blood Count 4.14 MC/CUMM (3.8-5.5); Red Cell Distribution Width 19.1 % (9.3-17.3)
[2017-09-19 06:15] LABS: White Blood Count 40.9 T/CUMM (4-12)
[2017-09-19 06:19] LABS: Acanthocytes Few; Band Neutrophils 6 % (0-10); Hypochromasia 1+; Lymphocytes 3 % (20-55); Metamyelocytes 1 %; Nucleated Red Blood Cells 1 (0-5); Segmented Neutrophils 87 % (50-85); Total Cells Counted 100
[2017-09-19 06:20] LABS: Burr Cells 1+; Macrocytosis 1+; Platelet Estimate Adequate
[2017-09-19 07:20] VITALS: BP 77/50
[2017-09-19] MEDS: ALBUMIN 25% 25 GM in PREMIX 1 EACH IV SCH (07:55)
== END 2017-09-19 07:05 | disposition expired | DRG 291 ==
LOC: N.ED 17:36 → SUATTDRO 20:15 → N.EDINP 20:15 → N.3E 20:41 → N.ICU 09-18 12:08
PROVIDERS: ADMIT Internal Medicine Infectious Disease; ATTEND Family Medicine